=== PATIENT | male | born 1950 | race Caucasian/White ===

== ENCOUNTER 2020-10-23 00:28 | Emergency (ER) | payer MEDICARE ==
[2020-10-23 00:37] VITALS: PULSE 95; RESP 16; TEMP 97.5
[2020-10-23] MEDS ORDERED: methylPREDNISolone SOD SUCCI 125 MG/2 ML VIAL IM ONE (01:51)
--- NOTE | 2020-10-23 01:52 | ED ---
Skin/Abscess/FB HPI - General Chief complaint: Skin/Abscess/Foreign Body Stated complaint: Poss poison cady Time Seen by Provider: 10/23/20 00:39 Source: patient, RN notes reviewed Mode of arrival: ambulatory Limitations: no limitations - History of Present Illness Initial comments: Patient is a 70-year-old male that presents to emergency department with bilateral upper extremity poison cady. He notes that he does have many large fluid-filled vesicles on his left forearm. She denied any pain only in the wrist crease with movement. He noted some bilateral upper extremities. He notes he does have some mild areas of contamination his neck. He is been trying IV block at home with no relief. She can emergency room to potentially get treatment ideas. He denied any chest pain shortness of breath headache nausea vomiting diarrhea comes to visit fever fatigue chills. - Related Data Previous Rx's Medication Instructions Recorded predniSONE 10 mg PO DAILY #68 tab 10/23/20 Allergies Allergy/AdvReac Type Severity Reaction Status Date / Time No Known Allergies Allergy Verified 10/23/20 01:52 Review of Systems ROS Statement: Those systems with pertinent positive or pertinent negative responses have been documented in the HPI. ROS Other: All systems not noted in ROS Statement are negative. Past Medical History Past Medical History: Cancer, Hearing Disorder / Deafness History of Any Multi-Drug Resistant Organisms: None Reported Additional Past Surgical History / Comment(s): melanoma back Past Psychological History: No Psychological Hx Reported Smoking Status: Never smoker Past Alcohol Use History: Occasional Past Drug Use History: None Reported General Exam Limitations: no limitations General appearance: alert, in no apparent distress Head exam: Present: atraumatic, normocephalic, normal inspection Eye exam: Present: normal appearance, PERRL, EOMI. Absent: scleral icterus, c onjunctival injection, periorbital swelling Neck exam: Present: normal inspection Respiratory exam: Present: normal lung sounds bilaterally. Absent: respiratory distress, wheezes, rales, rhonchi, stridor Cardiovascular Exam: Present: regular rate, normal rhythm, normal heart sounds. Absent: systolic murmur, diastolic murmur, rubs, gallop, clicks Extremities exam: Present: normal inspection, full ROM, normal capillary refill. Absent: tenderness, pedal edema, joint swelling, calf tenderness Neurological exam: Present: alert, oriented X3 Psychiatric exam: Present: normal affect, normal mood Skin exam: Present: warm, dry, intact, normal color, rash (Covering bilateral upper extremities, left has many fluid-filled vesicles, small spot on the left side of the neck.) Course Vital Signs 10/23/20 00:33 Temperature 97.5 F L Pulse Rate 95 Respiratory 16 Rate Medical Decision Making - Medical Decision Making 70-year-old male with bilateral upper extremity poison cady. Based on clinical symptoms patient can continue conservative management at home with oatmeal baths,, lotion, white and cold compresses, ice packs. 125 mg a slight Medrol ordered. Prednisone taper sent to pharmacy. Case discussed with Dr. Niño him a patient can discharge home with follow-up to primary care. Disposition Clinical Impression: Poison cady dermatitis Disposition: HOME SELF-CARE Condition: Stable Instructions (If sedation given, give patient instructions): Poison Cady (ED), Cold Compress or Soak (ED) Additional Instructions: Please return to the Emergency Department if symptoms worsen or any other concerns. Takes steroid as prescribed. Follow-up primary care in the next several days. Continue cold/cool compresses, O male best, calamine lotion. Prescriptions: predniSONE 10 mg PO DAILY #68 tab Is patient prescribed a controlled substance at d/c from ED?: No Referrals: Nonstaff,Physician [Primary Care Provider] - 1-2 days Time of Disposition: 02:01
== END 2020-10-23 02:10 | disposition home or self-care (01) ==
LOC: EC 00:28
DX: L23.7 Allergic contact dermatitis due to plants, except food (principal)
CPT/HCPCS: 96372; 99283; J2930